=== PATIENT | female | born 1985 | race Caucasian/White ===

== ENCOUNTER → 2016-04-16 | Outpatient (CLI) | payer BC ==
[~2016-04-16] MED LIST: SERT50TA PO
[2016-04-16 11:08] LABS: BASO % 0.3 %; BASO ABS # 0.03 K/uL (0-0.2); COMPLETE YES; EOS % 2.8 %; HEMATOCRIT 43.4 % (37-47); IG% 0.5 %; LYMPH % 23.6 %; LYMPH ABS # 2.62 K/uL (1.2-3.4); MEAN CELL VOLUME 85.9 fL (80-100); MEAN CORPUSCULAR HEMOGLOBIN 29.3 pg (25-34); MEAN CORPUSCULAR HGB CONC 34.1 g/dl (32-36); MEAN PLATELET VOLUME 10.8 fL (7.4-10.4); MONO % 9.2 %; NEUT % 63.6 %; PLATELET COUNT 287 K/uL (130-400); RED BLOOD COUNT 5.05 M/uL (4.2-5.4); WHITE BLOOD COUNT 11.11 K/uL (4.8-10.8)
[2016-04-16 11:41] LABS: ALT/SGPT 22 U/L (12-78); BLOOD UREA NITROGEN 12 mg/dl (7-18); BUN/CREATININE RATIO 14.9 (10-20); CALCIUM 8.5 mg/dl (8.5-10.1); CARBON DIOXIDE 24 mmol/L (21-32); CHLORIDE 110 mmol/L (98-107); CREATININE 0.81 mg/dl (0.60-1.20); GLUCOSE 89 mg/dl (70-99); SODIUM 143 mmol/L (136-145)
[2016-04-16 11:44] LABS: ALKALINE PHOSPHATASE 81 U/L (45-117); AST/SGOT 15 U/L (15-37)
== END | disposition home or self-care (01) ==
LOC: C.LAB1850 10:28
PROVIDERS: ATTEND Obstetrics & Gynecology
DX: E28.2 Polycystic ovarian syndrome (principal)

== ENCOUNTER → 2016-08-01 | Outpatient (CLI) | payer BC ==
[2016-08-01 12:35] LABS: ALT/SGPT 23 U/L (12-78); BLOOD UREA NITROGEN 11 mg/dl (7-18); BUN/CREATININE RATIO 11.9 (10-20); CARBON DIOXIDE 25 mmol/L (21-32); CHLORIDE 106 mmol/L (98-107); CREATININE 0.88 mg/dl (0.60-1.20); GLUCOSE 84 mg/dl (70-99); POTASSIUM 4.2 mmol/L (3.5-5.1); SODIUM 140 mmol/L (136-145)
[2016-08-01 12:46] LABS: ALB/GLOB RATIO 1.1 (0.9-2); ALKALINE PHOSPHATASE 70 U/L (45-117); AST/SGOT 14 U/L (15-37)
[2016-08-01 12:57] LABS: PROLACTIN 9.02 ng/mL
== END | disposition home or self-care (01) ==
LOC: C.LAB1850 11:10
PROVIDERS: ATTEND Obstetrics & Gynecology
DX: Z51.81 Encounter for therapeutic drug level monitoring (principal); Z79.899 Other long term (current) drug therapy; N97.9 Female infertility, unspecified

== ENCOUNTER → 2016-09-18 | Outpatient (CLI) | payer BC ==
--- NOTE | 2016-09-18 10:42 | [facility] Operative Report ---
Operative Report Operative Date Sep 18, 2016. Pre-Operative Diagnosis INFERTILITY Post-Operative Diagnosis INFERTILITY Procedure(s) Performed [facility] Surgeon GARRY Press Operator [employer] Surgeon(s) NONE Estimated Blood Loss NONE Findings NL APPEARING UTERINE CAVITY WITH BILATERAL FILL AND SPILL OF THE TUBES. Fluids NONE Specimens NONE Drains NONE Anesthesia NONE Complication(s) None Disposition HOME Description of Procedure TIME OUT WAS HELD IDENTIFYING CORRECT PATIENT AND PROCEDURE. LMP WAS NOTED TO BE 12 DAYS AGO. PATIENT WAS LAID SUPINE AND FROG-LEGGED. SPECULUM PLACED. CX CLEANED WITH IODINE AND GRASPED WITH TENACULUM. RADIOLOGIST CALLED AND DYE WAS INTRODUCED INTO THE UTERINE CAVITY. THE FINDINGS ARE NOTED ABOVE. WHEN THE PROCEDURE WAS COMPLETED, THE INSTRUMENTS WERE REMOVED FROM THE VAGINA. HEMOSTASIS WAS NOTED. THE PATIENT WAS D/C IN STABLE CONDITION. I attest to the content of the Intraoperative Record and any orders documented therein. Any exceptions are noted below.
--- NOTE | 2016-09-18 11:29 | DIAGNOSTIC IMAGING REPORT ---
HYSTEROSALPINGOGRAM CLINICAL HISTORY: FERTILITY TESTING COMPARISON STUDY: No previous studies for comparison. FINDINGS: 18 seconds of fluoroscopic time was utilized. 3 fluoroscopic spot images were acquired. Both fallopian tubes filled a normal fashion. There is free spillage bilaterally. The uterine cavity has a normal shape. IMPRESSION: Normal study. Free spillage bilaterally. Electronically signed by: Marlon Sutton M.D. 09/18/2016 11:28 AM Dictated Date/Time: 09/18/2016 11:27 AM
== END | disposition home or self-care (01) ==
LOC: C.RAD 09:29
PROVIDERS: ATTEND Obstetrics & Gynecology
DX: Z31.41 Encounter for fertility testing (principal)

== ENCOUNTER → 2016-09-19 | Outpatient (CLI) | payer BC ==
[2016-09-19 12:45] LABS: THYROID STIMULATING HORMONE 2.05 uIu/ml (0.300-4.500)
[2016-09-20 12:25] LABS: MICROSOMAL AB 2 IU/ML (<9)
--- NOTE | 2016-09-29 12:56 | CODING QUERY MEDICAL NECESSITY ---
CQSUPPORTING DIAGNOSIS NEEDED A supporting diagnosis is required for the test/procedure performed on this patient in order for us to be reimbursed by the patient's insurance. Please provide a supporting diagnosis for the following test/procedure listed below next to the test name along with your signature. *If there is no additional diagnosis for this patient that would support the following test/procedure please document that below next to the test/procedure. Test(s)/Procedure(s) that require a supporting diagnosis: DOS 09/19/16 VITAMIN D TEST THYROID TEST Provider Signature: Date: Thank you Ananya Bose Health Information Management Once completed, please kindly fax back to [phone] For questions please call [phone]
== END | disposition home or self-care (01) ==
LOC: C.LAB1850 10:32
PROVIDERS: ATTEND Internal Medicine Endocrinology, Diabetes & Metabolism
DX: N97.9 Female infertility, unspecified (principal); E55.9 Vitamin D deficiency, unspecified; R94.6 Abnormal results of thyroid function studies

== ENCOUNTER → 2016-09-24 | Outpatient (CLI) | payer BC | END | disposition home or self-care (01) | LOC: C.PAPS 11:02 | PROVIDERS: ATTEND Physician Assistant | DX: Z01.419 Encounter for gynecological examination (general) (routine) without abnormal findings (principal) ==

== ENCOUNTER → 2016-11-07 | Outpatient (CLI) | payer BC ==
[2016-11-07 13:57] LABS: THYROID STIMULATING HORMONE 1.39 uIu/ml (0.300-4.500)
== END | disposition home or self-care (01) ==
LOC: C.LAB1850 12:18
PROVIDERS: ATTEND Internal Medicine Endocrinology, Diabetes & Metabolism
DX: E55.9 Vitamin D deficiency, unspecified (principal); N97.9 Female infertility, unspecified

== ENCOUNTER → 2016-11-17 | Outpatient (CLI) | payer BC | END | disposition home or self-care (01) | LOC: C.LAB1850 13:41 | PROVIDERS: ATTEND Obstetrics & Gynecology | DX: Z32.01 Encounter for pregnancy test, result positive (principal) ==

== ENCOUNTER → 2016-11-19 | Outpatient (CLI) | payer BC | END | disposition home or self-care (01) | LOC: C.LAB1850 14:08 | PROVIDERS: ATTEND Obstetrics & Gynecology | DX: O20.0 Threatened abortion (principal) ==

== ENCOUNTER → 2016-12-15 | Outpatient (CLI) | payer BC ==
[2016-12-15 13:15] LABS: URINE APPEARANCE CLEAR (CLEAR); URINE BILIRUBIN NEG (NEG); URINE COLOR YELLOW; URINE NITRITE NEG (NEG); URINE SPECIFIC GRAVITY 1.024 (1.000-1.030); UROBILINOGEN NEG (NEG)
[2016-12-15 13:16] LABS: MANUAL MICROSCOPIC REQUIRED? NO; REVIEW REQ? NO
== END | disposition home or self-care (01) ==
LOC: C.LABSPEC 12:03
PROVIDERS: ATTEND Obstetrics & Gynecology
DX: O99.281 Endocrine, nutritional and metabolic diseases complicating pregnancy, first trimester (principal); Z3A.00 Weeks of gestation of pregnancy not specified

== ENCOUNTER → 2016-12-18 | Outpatient (CLI) | payer BC ==
[2016-12-18 16:38] LABS: BASO % 0.3 %; BASO ABS # 0.05 K/uL (0-0.2); COMPLETE YES; EOS % 1.5 %; HEMATOCRIT 40.5 % (37-47); IG% 0.3 %; LYMPH % 17.3 %; LYMPH ABS # 2.54 K/uL (1.2-3.4); MEAN CELL VOLUME 87.7 fL (80-100); MEAN CORPUSCULAR HEMOGLOBIN 30.3 pg (25-34); MEAN CORPUSCULAR HGB CONC 34.6 g/dl (32-36); MEAN PLATELET VOLUME 11.1 fL (7.4-10.4); MONO % 5.5 %; NEUT % 75.1 %; PLATELET COUNT 263 K/uL (130-400); RED BLOOD COUNT 4.62 M/uL (4.2-5.4); WHITE BLOOD COUNT 14.64 K/uL (4.8-10.8)
== END | disposition home or self-care (01) ==
LOC: C.LAB1850 15:42
PROVIDERS: ATTEND Obstetrics & Gynecology
DX: O99.281 Endocrine, nutritional and metabolic diseases complicating pregnancy, first trimester (principal); Z3A.00 Weeks of gestation of pregnancy not specified

== ENCOUNTER → 2017-02-11 | Outpatient (CLI) | payer BC ==
[2017-02-11 16:59] LABS: GTGD 50 Grams
== END | disposition home or self-care (01) ==
LOC: C.LAB1850 14:05
PROVIDERS: ATTEND Obstetrics & Gynecology
DX: O99.282 Endocrine, nutritional and metabolic diseases complicating pregnancy, second trimester (principal); E03.9 Hypothyroidism, unspecified; Z3A.00 Weeks of gestation of pregnancy not specified

== ENCOUNTER → 2017-05-07 | Outpatient (CLI) | payer OTHER ==
[2017-05-07 12:23] LABS: HEMATOCRIT 38.7 % (37-47); HEMOGLOBIN 12.8 g/dL (12.0-16.0)
== END | disposition home or self-care (01) ==
LOC: C.LAB1850 09:54
PROVIDERS: ATTEND Obstetrics & Gynecology
DX: Z34.03 Encounter for supervision of normal first pregnancy, third trimester (principal); R94.6 Abnormal results of thyroid function studies

== ENCOUNTER → 2017-05-13 | Outpatient (CLI) | payer OTHER | END | disposition home or self-care (01) | LOC: C.LAB1850 07:33 | PROVIDERS: ATTEND Obstetrics & Gynecology | DX: O28.1 Abnormal biochemical finding on antenatal screening of mother (principal); Z3A.00 Weeks of gestation of pregnancy not specified ==

== ENCOUNTER 2017-05-25 12:16 | Outpatient (CLI) | payer OTHER ==
[~2017-05-25] VITALS: Ht 167.6 cm; Wt 85.5 kg
[2017-05-25] MEDS ORDERED: NIFEdipine 10 MG CAP PO STA (12:35)
[2017-05-25] MEDS ORDERED: LACTATED RINGER'S 1000ML 500 ML IV ONE (12:35)
[2017-05-25] MEDS ORDERED: NIFEdipine 10 MG CAP ONE (12:39)
[2017-05-25 13:11] LABS: HEMATOCRIT 36.3 % (37-47); HEMOGLOBIN 12.9 g/dL (12.0-16.0); MEAN CELL VOLUME 91.4 fL (80-100); MEAN CORPUSCULAR HEMOGLOBIN 32.5 pg (25-34); MEAN PLATELET VOLUME 10.8 fL (7.4-10.4); PLATELET COUNT 182 K/uL (130-400); RED CELL DISTRIBUTION WIDTH CV 13.4 % (11.5-14.5); RED CELL DISTRIBUTION WIDTH SD 44.3 fL (36.4-46.3); WHITE BLOOD COUNT 14.55 K/uL (4.8-10.8)
[2017-05-25 13:16] LABS: MEAN CORPUSCULAR HGB CONC 35.5 g/dl (32-36)
[2017-05-25 13:17] LABS: INR 0.9 (0.9-1.1); PTT PATIENT 24.7 SECONDS (21.0-31.0)
[2017-05-25 13:24] LABS: ALBUMIN 2.6 gm/dl (3.4-5.0); ALT/SGPT 27 U/L (12-78); BLOOD UREA NITROGEN 7 mg/dl (7-18); CALCIUM 8.4 mg/dl (8.5-10.1); CARBON DIOXIDE 22 mmol/L (21-32); CREATININE 0.69 mg/dl (0.60-1.20); GLUCOSE 138 mg/dl (70-99); POTASSIUM 3.2 mmol/L (3.5-5.1); SODIUM 137 mmol/L (136-145); URIC ACID 3.2 mg/dl (2.6-7.2)
[2017-05-25 13:27] LABS: ALKALINE PHOSPHATASE 106 U/L (45-117); AST/SGOT 21 U/L (15-37); TOTAL PROTEIN 6.1 gm/dl (6.4-8.2)
[2017-05-25] MEDS ORDERED: ACETAMINOPHEN 325 MG TAB ONE (13:33)
[2017-05-25 14:23] VITALS: Ht 167.6 cm; Wt 85.5 kg
[2017-05-25] MEDS ORDERED: MAGNESIUM SULFATE / WTR 1,000 ML IV SCH (14:26)
[2017-05-25] MEDS ORDERED: LEVO50TA6 PO (14:27)
[2017-05-25] MEDS ORDERED: PRENTAB26 PO (14:27)
[2017-05-25] MEDS ORDERED: LEVO100T7 PO (14:27)
[2017-05-25] MEDS ORDERED: RANI150T85 PO (14:27)
[2017-05-25] MEDS ORDERED: MAGNESIUM SULFATE 4GM / WTR 4 GM BAG ONE (14:30)
[2017-05-25] MEDS ORDERED: MAGNESIUM SULFATE 40GM/ WTR 1,000 ML BAG ONE (14:30)
[2017-05-25] MEDS ORDERED: BETAMETH SOD PHOS/ACETATE IA 6 MG/ML IM ONE (14:30)
[2017-05-25] MEDS ORDERED: BETAMETH SOD PHOS/ACETATE IA 6 MG/ML ONE (14:31)
== END 2017-05-25 15:35 | disposition short-term general hospital (02) ==
LOC: C.LD 12:16 → C.OPB 12:16
PROVIDERS: ATTEND Obstetrics & Gynecology
DX: O99.89 Other specified diseases and conditions complicating pregnancy, childbirth and the puerperium (principal); R03.0 Elevated blood-pressure reading, without diagnosis of hypertension; R51 Headache; H53.9 Unspecified visual disturbance; Z3A.30 30 weeks gestation of pregnancy

== ENCOUNTER 2019-11-23 05:29 | Inpatient (IN) ==
[2019-11-23] MEDS ORDERED: OXYTOCIN 30 UNITS/500 ML BAG IV PRN ×3 (06:41→08:47)
--- NOTE | 2019-11-23 06:49 | Labor Progress Brief Note ---
Date of Service November 23, 2019 Subjective Patient arrives from home with LOF at 0200, clear, followed by onset of contractions Q5min. +FM, no VB. Patient [place] 34wk [place] [facility] [place] . Assessment & Plan (1) Diet controlled gestational diabetes mellitus (GDM), antepartum: Check FSBG x1 and then prn; was diet controlled. (2) Previous delivery affecting , antepartum: In Labor now, desires TOLAC. R/b/a discussed, including augmentation with pitocin, and patient reaffirms consent. Physical Exam Constitutional: WD/WN, vitals as above + in distress Eyes: PERRL, conjunctivae normal, anicteric sclerae ENMT: external ear and nose normal, oropharynx normal Neck: supple Respiratory: normal respiratory effort and able to speak in complete sentences; no respiratory distress Cardiovascular: Rate/Rhythm: regular rate and regular rhythm Gastrointestinal (Abdomen): Gravid / AGA, nontender Musculoskeletal: no cyanosis or clubbing, extremities motor strength 5/5 Skin: no rashes, warm and dry Neurologic: patellar DTR's 2+ bilat, sensation intact Psychiatric: A+Ox3, euthymic affect Genitourinary: Speculum/Bimanual Exam: no vaginal lesions, no vaginal bleeding and uterus nontender OB Exam Abdomen: + vertex and + estimated weight (7) Manual OB Exam: + cervical dilation 1 cm, + cervical effacement 80%, + station -2 and + amniotic fluid (+amnisure) clear OB Exam Monitor Tracing: + external FHT monitor used, + external uterine monitor used and + category I Lymphatic: no cervical or axillary lymphadenopathy Results & Data ([facility]) Vital Signs (Past 12 Hours) Vital Signs Temp Pulse Resp BP 11/23/19 06:23 78 130/85 11/23/19 05:48 97.9 F 83 18 132/93 11/23/19 05:38 83 132/93 Coding Level of Care Code None Diagnoses Diet controlled gestational diabetes mellitus (GDM), antepartum O24.410 Previous delivery affecting , antepartum O34.219
[2019-11-23 07:06] LABS: Hematocrit (blood only) 37.6 % (37-47); Hemoglobin 12.3 g/dL (12.0-16.0); Mean Corpuscular Hemoglobin 28.3 pg (25-34); Mean Corpuscular Hgb Conc 32.7 g/dL (32-36); Mean Corpuscular Volume 86.4 fL (80-100); Mean Platelet Volume 11.4 fL (7.4-10.4); Platelet Count 182 K/uL (130-400); RDW Coefficient of Variation 15.1 % (11.5-14.5); RDW Standard Deviation 46.6 fL (36.4-46.3); Red Blood Count 4.35 M/uL (4.2-5.4); White Blood Count 15.16 K/uL (4.8-10.8)
[2019-11-23] MEDS: LACTATED RINGER'S 1,000 ML IV PRN ×3 (07:32→19:24)
[2019-11-23] MEDS ORDERED: BUPIVACAINE 0.25% 30 ML VIAL ONE (09:21)
[2019-11-23] MEDS ORDERED: ePHEDrine sulfate 50 MG/ML AMP ONE (09:21)
[2019-11-23] MEDS ORDERED: fentaNYL citrate 100 MCG/2 ML VIAL ONE (09:21)
[2019-11-23] MEDS ORDERED: fentaNYL 2MCG/ML ROPIV 1.25MG/ML 100 ML BAG EPI ONE (09:22)
--- NOTE | 2019-11-23 10:03 | Anesthesiology Consultation ---
Date of Service November 23, 2019 Assessment & Plan (1) Encounter for pre-operative examination: Chart Review Chart Review: Patient NOT seen in Pre Admission Testing and Acceptable Risk for Labor Epidural Consults Requested none ASA ASA3 Proposed Anesthesia Anesthesia Type: Labor Epidural Risk / Benefits Reviewed With: PT / POA / Parent / Guardian, Accepts Plan and Informed Consent Obtained History Height/Weight Height: 5 ft 4 in Weight: 96.615 kg Allergies Allergy/AdvReac Type Severity Reaction Status Date / Time No Known Drug Allergies Allergy Unknown Verified 11/23/19 05:45 Medications Home Medications Medication Instructions Recorded Confirmed Last Taken prenat.vits,kaylie,xwp-vkyi-kabqh 1 tab PO QAM 11/30/18 11/23/19 11/22/19 22:00 aspirin 81 mg tablet,delayed 81 mg PO QAM 01/17/19 11/23/19 11/22/19 08:00 release acetone (urine) test #50 ea 06/23/19 11/21/19 Unknown blood sugar diagnostic #150 ea 06/23/19 11/21/19 Unknown blood-glucose meter #1 ea 06/23/19 11/21/19 Unknown lancets #102 ea 06/23/19 11/21/19 Unknown levothyroxine 75 mcg tablet 75 mcg PO DAILY #30 tab 07/05/19 11/23/19 11/22/19 08:00 pnv #[id number] [-DHA] 1 ea PO DAILY 11/16/19 11/23/19 11/22/19 22:00 Active Medications Generic Name Dose Route Start Last Admin Trade Name Freq PRN Reason Stop Dose Admin Lactated Ringer's 1,000 mls @ 125 mls/hr 11/23/19 06:41 11/23/19 08:02 Lr IV 11/25/19 06:40 125 mls/hr .Q8H PRN Infusion L&D Protocol Protocol Oxytocin 30 units in 500 mls @ 2 mls/hr 11/23/19 08:47 11/23/19 09:17 Pitocin IV 11/25/19 08:46 0.24 units/hr .Q24H PRN 4 mls/hr Labor Induction/Augmentation Administration Protocol 0.12 UNITS/HR NPO Date Last Intake of Fluids: 11/23/19 Time Last Intake of Fluids: 10:00 Date Last Intake of Solids: 11/23/19 Time Last Intake of Solids: 04:30 Past Medical History Medical History Anxiety and depression Arthritis LOWER SPINE WITH BONE SPURS Gestational diabetes Heartburn DURING CURRENT Heterozygous MTHFR mutation [id number] Hx of female infertility Iron deficiency anemia HX OF Migraine FOLLOWS WITH NEUROLOGY PCOS (polycystic ovarian syndrome) depression Tachycardia IN THE PAST NOTED (DOES NOT FOLLOW WITH CARDS) Temporomandibular joint disorder Exercise / Class Metabolic Activity II 4-5 Yardwork/Stairs/Walk up hill Past Family History Family History Father Dyslipidemia Grandmother (Paternal) Ovarian cancer Mother History of PCOS Sister History of PCOS Uncle Pectus excavatum Past Surgical History Surgical History H/O cosmetic surgery SCAR REVISION History of esophagogastroduodenoscopy (EGD) Hx of bilateral breast reduction surgery S/P section X 1 [place] teeth removed Past Anesthesia History No Hx of Anesthesia Complications and No Family Hx of Anesthesia Complications History of PONV No Hx of PONV Social History Smoking Status: Never smoker Hx Alcohol Use: No Hx Substance Use: No substance use type: does not use Review of Systems Patient denies history of abnormal bleeding or bleeding disorder. Patient denies active use of anticoagulants other than low dose aspirin. Patient denies numbness, tingling or weakness in lower extremities. Physical Exam Vital Signs Last Vital Signs Temp 36.8 C 11/23/19 07:03 Pulse 103 H 11/23/19 09:06 Resp 18 11/23/19 07:03 BP 151/95 H 11/23/19 09:06 Constitutional not obese (gravid uterus) ENMT Mouth: + TMJ abnormality; oral opening not small Thyromental Distance: > or= 3.5 Finger Breadths Mallampati Class: III Neck normal visual inspection; neck extension not limited Respiratory normal respiratory effort Auscultation: lungs clear to auscultation bilaterally Cardiovascular Rate/Rhythm: regular rate and regular rhythm Heart Sounds: no murmur Neurologic moves all extremities Motor/Sensory: no sensory deficit Psychiatric Orientation: alert and oriented x 3 Testing Laboratory Results 11/23/19 06:57
[2019-11-23] MEDS ORDERED: ePHEDrine sulfate 50 MG/ML AMP IV PRN (10:47)
[2019-11-23] MEDS ORDERED: NALOXONE HCL 1 MG in SODIUM CHLORIDE 0.9% 1000ML 1,000 ML IV PRN (10:47)
[2019-11-23] MEDS ORDERED: fentaNYL 2MCG/ML ROPIV 1.25MG/ML 100 ML BAG EPI PRN (10:47)
[2019-11-23] MEDS ORDERED: ONDANSETRON INJ 2 MG/ML 2 ML VIAL IV PRN (10:47)
[2019-11-23] MEDS ORDERED: NALOXONE HCL 0.4 MG/1 ML VIAL/CARP IV PRN (10:47)
[2019-11-23] MEDS ORDERED: DiphenhydrAMINE HCL 50 MG/ML VIAL IV PRN (10:47)
[2019-11-23] MEDS ORDERED: CALCIUM CARBONATE 500 MG CHEWABLE TAB PO PRN ×2 (12:57→19:12)
--- NOTE | 2019-11-23 13:40 | Labor Progress Brief Note ---
Date of Service November 23, 2019 Subjective Reason For Note: Routine Evaluation Assessment & Plan (1) Diet controlled gestational diabetes mellitus (GDM), antepartum: Check FSBG x1 and then prn; was diet controlled. (2) Previous delivery affecting , antepartum: In Labor now, desires TOLAC. R/b/a discussed, including augmentation with pitocin, and patient reaffirms consent. Progressing well. Epidural in place Admission and Anticipated Discharge Date Admission Date: November 23, 2019 Physical Exam Genitourinary: OB Exam Abdomen: + vertex Manual OB Exam: + cervical dilation 3 cm, + cervical effacement 80%, + station -2 and + amniotic fluid clear OB Exam Monitor Tracing: + external FHT monitor used, + external uterine monitor used, + category I and + normal FHT variability; no late decelerations present and no variable decelerations Results & Data ([facility]) Vital Signs (Past 12 Hours) Vital Signs Temp Pulse Resp BP Pulse Ox 11/23/19 13:34 111 H 96 11/23/19 13:29 117 H 95 11/23/19 13:24 129 H 121/69 96 11/23/19 13:19 128 H 95 11/23/19 13:14 135 H 97 11/23/19 13:10 122 H 111/65 11/23/19 13:09 118 H 96 11/23/19 13:04 133 H 96 11/23/19 13:00 103 H 94 11/23/19 12:59 144 H 96 11/23/19 12:55 111 H 94 11/23/19 12:54 98 H 92 11/23/19 12:53 117 H 106/66 11/23/19 12:50 100 H 94 11/23/19 12:49 105 H 95 11/23/19 12:44 124 H 95 11/23/19 12:39 127 H 95 11/23/19 12:38 120 H 108/68 11/23/19 12:34 102 H 94 11/23/19 12:29 106 H 96 11/23/19 12:24 108 H 112/74 97 11/23/19 12:19 115 H 97 11/23/19 12:14 111 H 96 11/23/19 12:10 102 H 121/79 11/23/19 12:09 111 H 96 11/23/19 12:04 96 H 97 11/23/19 11:59 120 H 96 11/23/19 11:55 119 H 91 11/23/19 11:54 123 H 95 11/23/19 11:53 113 H 123/80 11/23/19 11:49 102 H 95 11/23/19 11:45 97 H 93 11/23/19 11:44 95 H 94 11/23/19 11:40 96 H 18 121/78 11/23/19 11:39 88 95 11/23/19 11:34 108 H 16 96 11/23/19 11:31 104 H 94 11/23/19 11:29 100 H 96 11/23/19 11:26 113 H 94 11/23/19 11:24 107 H 95 11/23/19 11:23 97 H 124/83 11/23/19 11:19 93 H 18 96 11/23/19 11:14 96 H 95 11/23/19 11:09 91 H 97 11/23/19 11:05 113 H 20 136/91 11/23/19 11:04 105 H 95 11/23/19 10:59 111 H 135/82 97 11/23/19 10:56 110 H 93 11/23/19 10:54 119 H 127/70 96 11/23/19 10:50 102 H 18 94 11/23/19 10:49 117 H 96 11/23/19 10:47 103 H 130/76 11/23/19 10:46 108 H 18 138/85 11/23/19 10:44 121 H 96 11/23/19 10:43 130 H 130/62 11/23/19 10:41 115 H 18 11/23/19 10:39 128 H 115/64 97 11/23/19 10:37 123 H 128/77 11/23/19 10:35 136 H 136/74 11/23/19 10:34 128 H 130/68 96 11/23/19 10:31 126 H 129/76 11/23/19 10:29 137 H 125/80 97 11/23/19 10:27 120 H 139/87 11/23/19 10:25 88 138/92 11/23/19 10:24 116 H 97 11/23/19 10:20 121 H 135/84 11/23/19 10:19 113 H 96 11/23/19 10:14 100 H 132/94 98 11/23/19 10:09 88 96 11/23/19 09:06 103 H 151/95 H 11/23/19 08:50 98 H 145/93 H 11/23/19 07:50 116 H 134/91 11/23/19 07:35 100 H 135/87 11/23/19 07:33 93 H 139/90 11/23/19 07:20 109 H 144/94 H 11/23/19 07:03 36.8 C 111 H 18 163/99 H 11/23/19 06:23 78 130/85 11/23/19 05:48 36.6 C 83 18 132/93 11/23/19 05:38 36.6 C 83 18 132/93 Coding Level of Care Code None Diagnoses Diet controlled gestational diabetes mellitus (GDM), antepartum O24.410 Previous delivery affecting , antepartum O34.219
--- NOTE | 2019-11-23 19:53 | Labor Progress Brief Note ---
Date of Service November 23, 2019 Subjective Reason For Note: Routine Evaluation Assessment & Plan (1) Diet controlled gestational diabetes mellitus (GDM), antepartum: Check FSBG x1 and then prn; was diet controlled. (2) Previous delivery affecting , antepartum: In Labor now, desires TOLAC. R/b/a discussed, including augmentation with pitocin, and patient reaffirms consent. Progressing well. Epidural in place. Reporting chest pain: EKG with sinus tach. Possible left vent enlargement which is unchanged from prior EKG. Official read pending. Patient given Tums and will continue to monitor Admission and Anticipated Discharge Date Admission Date: November 23, 2019 Physical Exam Genitourinary: Manual OB Exam: + cervical dilation (9.5), + cervical effacement 100%, + station + 1 and + amniotic fluid clear OB Exam Monitor Tracing: + external FHT monitor used, + external uterine monitor used, + category I and + normal FHT variability; no early decelerations present, no late decelerations present and no variable decelerations [facility]) Vital Signs (Past 12 Hours) Vital Signs Temp Pulse Resp BP Pulse Ox 11/23/19 19:44 101 H 98 11/23/19 19:39 121 H 98 11/23/19 19:38 125 H 169/94 H 11/23/19 19:34 132 H 98 11/23/19 19:29 134 H 97 11/23/19 19:24 95 H 97 11/23/19 19:19 118 H 97 11/23/19 19:14 116 H 98 11/23/19 19:09 93 H 143/93 H 98 11/23/19 19:04 103 H 97 11/23/19 18:59 99 H 98 11/23/19 18:55 98 H 111/76 11/23/19 18:54 96 H 98 11/23/19 18:49 94 H 97 11/23/19 18:44 94 H 97 11/23/19 18:39 97 H 123/75 97 11/23/19 18:34 106 H 98 11/23/19 18:29 97 H 97 11/23/19 18:24 109 H 114/73 97 11/23/19 18:19 107 H 96 11/23/19 18:14 92 H 96 11/23/19 18:09 93 H 16 113/71 96 11/23/19 18:04 100 H 96 11/23/19 17:59 94 H 95 11/23/19 17:54 82 97 11/23/19 17:53 129 H 117/71 11/23/19 17:49 92 H 95 11/23/19 17:44 111 H 96 11/23/19 17:39 95 H 114/66 95 11/23/19 17:34 99 H 95 11/23/19 17:29 104 H 95 11/23/19 17:24 91 H 110/70 97 11/23/19 17:19 95 H 96 11/23/19 17:14 104 H 96 11/23/19 17:09 114 H 96 11/23/19 17:08 101 H 114/74 11/23/19 17:07 36.8 C 107 H 18 118/75 96 11/23/19 17:04 101 H 97 11/23/19 16:59 85 97 11/23/19 16:54 110 H 95 11/23/19 16:53 95 H 121/78 11/23/19 16:49 100 H 95 11/23/19 16:44 108 H 98 11/23/19 16:39 99 H 122/81 96 11/23/19 16:34 82 95 11/23/19 16:29 101 H 95 11/23/19 16:24 96 H 121/75 96 11/23/19 16:19 121 H 96 11/23/19 16:14 81 96 11/23/19 16:09 92 H 96 11/23/19 16:08 120 H 18 120/76 11/23/19 16:04 107 H 96 11/23/19 15:59 111 H 96 11/23/19 15:55 130 H 120/72 11/23/19 15:54 118 H 97 11/23/19 15:49 98 H 96 11/23/19 15:44 107 H 94 11/23/19 15:39 107 H 127/78 95 11/23/19 15:34 101 H 94 11/23/19 15:29 85 96 11/23/19 15:24 76 126/79 96 11/23/19 15:19 105 H 94 11/23/19 15:14 113 H 96 11/23/19 15:09 117 H 96 11/23/19 15:08 96 H 16 129/86 11/23/19 15:04 83 97 11/23/19 14:59 96 H 96 11/23/19 14:54 122 H 94 11/23/19 14:53 80 122/81 11/23/19 14:49 98 H 92 11/23/19 14:44 103 H 96 11/23/19 14:39 94 H 95 11/23/19 14:38 37.0 C 109 H 16 116/78 96 11/23/19 14:35 83 94 11/23/19 14:34 104 H 94 11/23/19 14:30 116 H 94 11/23/19 14:29 105 H 95 11/23/19 14:24 112 H 121/81 95 11/23/19 14:23 89 94 11/23/19 14:19 105 H 96 11/23/19 14:14 116 H 95 11/23/19 14:09 92 H 123/76 96 11/23/19 14:04 118 H 96 11/23/19 13:59 133 H 97 11/23/19 13:54 131 H 96 11/23/19 13:53 116 H 108/61 11/23/19 13:49 138 H 97 11/23/19 13:44 112 H 95 11/23/19 13:39 109 H 16 96 11/23/19 13:38 118 H 114/67 11/23/19 13:34 111 H 96 11/23/19 13:29 117 H 95 11/23/19 13:24 129 H 121/69 96 11/23/19 13:19 128 H 95 11/23/19 13:14 135 H 97 11/23/19 13:10 122 H 111/65 11/23/19 13:09 118 H 96 11/23/19 13:04 133 H 96 11/23/19 13:00 103 H 94 11/23/19 12:59 144 H 96 11/23/19 12:55 111 H 94 11/23/19 12:54 98 H 92 11/23/19 12:53 117 H 106/66 11/23/19 12:50 100 H 94 11/23/19 12:49 105 H 95 11/23/19 12:44 124 H 95 11/23/19 12:39 127 H 18 95 11/23/19 12:38 120 H 108/68 11/23/19 12:34 102 H 94 11/23/19 12:29 106 H 96 11/23/19 12:24 108 H 112/74 97 11/23/19 12:19 115 H 97 11/23/19 12:14 111 H 96 11/23/19 12:10 102 H 121/79 11/23/19 12:09 111 H 96 11/23/19 12:04 96 H 97 11/23/19 11:59 120 H 96 11/23/19 11:55 119 H 91 11/23/19 11:54 123 H 95 11/23/19 11:53 113 H 123/80 11/23/19 11:49 102 H 95 11/23/19 11:45 97 H 93 11/23/19 11:44 95 H 94 11/23/19 11:40 36.9 C 96 H 18 121/78 95 11/23/19 11:39 88 95 11/23/19 11:34 108 H 16 96 11/23/19 11:31 104 H 94 11/23/19 11:29 100 H 96 11/23/19 11:26 113 H 94 11/23/19 11:24 107 H 95 11/23/19 11:23 97 H 124/83 11/23/19 11:19 93 H 18 96 11/23/19 11:14 96 H 95 11/23/19 11:09 91 H 97 11/23/19 11:05 113 H 20 136/91 11/23/19 11:04 105 H 95 11/23/19 10:59 111 H 135/82 97 11/23/19 10:56 110 H 93 11/23/19 10:54 119 H 127/70 96 11/23/19 10:50 102 H 18 94 11/23/19 10:49 117 H 96 11/23/19 10:47 103 H 130/76 11/23/19 10:46 108 H 18 138/85 11/23/19 10:44 121 H 96 11/23/19 10:43 130 H 130/62 11/23/19 10:41 115 H 18 11/23/19 10:39 128 H 115/64 97 11/23/19 10:37 123 H 128/77 11/23/19 10:35 136 H 136/74 11/23/19 10:34 128 H 130/68 96 11/23/19 10:31 126 H 129/76 11/23/19 10:29 137 H 125/80 97 11/23/19 10:27 120 H 139/87 11/23/19 10:25 88 138/92 11/23/19 10:24 116 H 97 11/23/19 10:20 121 H 135/84 11/23/19 10:19 113 H 96 11/23/19 10:14 100 H 132/94 98 11/23/19 10:09 88 96 11/23/19 09:06 36.9 C 103 H 20 151/95 H 11/23/19 08:50 98 H 145/93 H 11/23/19 07:50 116 H 134/91 Coding Level of Care Code None Diagnoses Diet controlled gestational diabetes mellitus (GDM), antepartum O24.410 Previous delivery affecting , antepartum O34.219
[2019-11-23] MEDS ORDERED: CEFAZOLIN 2000MG 2,000 MG/15 ML SYR IV ONE (22:45)
[2019-11-23] MEDS ORDERED: METHYLERGONOVINE MALEATE 0.2 MG/ML AMP ONE (22:58)
[2019-11-23 23:04] LABS: Base Excess Cord Arterial Bld -18.3 mEq/L (-9-1.8); Base Excess Cord Venous Blood -15.9 mEq/L (-7.7-1.9); CO2 Cord Arterial Blood 101 mmHg (39.1-73.5); Cord Venous Blood HCO3 22 mmol/L (18.4-26.8); Cord Venous Blood PCO2 131 mmHg (30.4-57.2); Cord Venous Blood pH 6.84 (7.20-7.44); HCO3 Cord Arterial Blood 18 mmol/L (19.7-28.5); PO2 Cord Arterial Blood 30 mmHg (4.1-31.7); pH Cord Arterial Blood 6.86 (7.1-7.38)
[2019-11-23 23:05] LABS: Oxygen Sat Cord Arterial Blood < 60.0 % (<60)
[2019-11-23 23:06] LABS: O2 Saturation Cord Venous Bld < 60.0 % (<68)
[2019-11-23] MEDS ORDERED: METHYLERGONOVINE MALEATE 0.2 MG/ML AMP IM STA (23:06)
[2019-11-23 23:07] LABS: Cord Venous Blood PO2 < 10 mmHg (14.1-43.3)
[2019-11-23] MEDS ORDERED: ALBUMIN 5% 250 ML IV ONE ×2 (23:15)
[2019-11-23] MEDS ORDERED: SODIUM CHLORIDE 0.9% 250 ML IV PRN (23:25)
[2019-11-23 23:27] LABS: Hematocrit (blood only) 30.7 % (37-47); Mean Corpuscular Hemoglobin 28.3 pg (25-34); Mean Corpuscular Hgb Conc 32.6 g/dL (32-36); Mean Platelet Volume 11.5 fL (7.4-10.4); Platelet Count 182 K/uL (130-400); RDW Coefficient of Variation 15.5 % (11.5-14.5); RDW Standard Deviation 48.1 fL (36.4-46.3); Red Blood Count 3.53 M/uL (4.2-5.4)
[2019-11-23 23:36] LABS: Partial Thromboplastin Ratio 0.9; Partial Thromboplastin Time 24.8 Seconds (21.0-31.0); Prothrombin Time 10.6 Seconds (9.0-12.0)
[2019-11-23 23:47] LABS: Basophils # (auto) 0.03 K/uL (0-0.2); Basophils % (auto) 0.1 %; Eosinophils # (auto) 0.01 K/uL (0-0.5); Immature Granulocytes # (auto) 0.14 K/uL (0.00-0.02); Immature Granulocytes % (auto) 0.6 %; Lymphocytes # (auto) 1.14 K/uL (1.2-3.4); Lymphocytes % (auto) 4.8 %; Monocytes # (auto) 1.04 K/uL (0.11-0.59); Monocytes % (auto) 4.4 %; Neutrophils # (auto) 21.24 K/uL (1.4-6.5); Neutrophils % (auto) 90.1 %
[2019-11-24] MEDS ORDERED: ONDANSETRON INJ 2 MG/ML 2 ML VIAL ONE (00:20)
[2019-11-24] MEDS ORDERED: PHENYLEPHRINE 100MCG/ML 5ML SYR ONE (00:21)
[2019-11-24] MEDS ORDERED: PHENYLEPHRINE HCL 10 MG/ML VIAL ONE (00:21)
[2019-11-24] MEDS ORDERED: LIDOCAINE/EPINEPHRINE 2% 1:200,000 20 ML SDV ONE (00:29)
[2019-11-24] MEDS ORDERED: MoRPHine SULFATE PF 1 MG/ML 10 ML AMP/VIAL ONE (00:29)
[2019-11-24] MEDS ORDERED: SODIUM CHLORIDE 0.9% 250 ML IV PRN (00:34)
[2019-11-24 01:14] LABS: Fibrinogen 434 mg/dl (184-400)
[2019-11-24] MEDS ORDERED: ONDANSETRON INJ 2 MG/ML 2 ML VIAL IV PRN ×2 (01:34→19:37)
[2019-11-24] MEDS ORDERED: NALOXONE HCL 1 MG in SODIUM CHLORIDE 0.9% 1000ML 1,000 ML IV PRN (01:34)
[2019-11-24] MEDS ORDERED: DiphenhydrAMINE HCL 50 MG/ML VIAL IV PRN ×2 (01:34→19:37)
[2019-11-24] MEDS ORDERED: NALOXONE HCL 0.08 MG in SYRINGE 1.8 ML IV PRN (01:34)
[2019-11-24] MEDS ORDERED: MoRPHine SULFATE PF 1 MG/ML 10 ML AMP/VIAL EPI ONE (01:34)
[2019-11-24] MEDS ORDERED: LACTATED RINGER'S 500 ML IV PRN (01:34)
[2019-11-24] MEDS ORDERED: NALOXONE HCL 0.4 MG/1 ML VIAL/CARP IV PRN (01:34)
[2019-11-24] MEDS ORDERED: ePHEDrine sulfate 50 MG/ML AMP IV PRN (01:34)
[2019-11-24] MEDS ORDERED: NO NARCOTICS OR SEDATIVES SCH (01:45)
[2019-11-24] MEDS ORDERED: DC INTRASPINAL MORPHINE SCH (01:45)
[2019-11-24] MEDS ORDERED: SODIUM CHLORIDE 0.9% 1000ML 1,000 ML IV SCH (01:45)
[2019-11-24] MEDS ORDERED: ACETAMINOPHEN 1000 MG/100 ML IV IV PRN (01:49)
[2019-11-24] MEDS ORDERED: fentaNYL citrate 100 MCG/2 ML VIAL ONE (02:19)
--- NOTE | 2019-11-24 02:42 | Anesthesia Procedure Note ---
Date of Service November 24, 2019 Anesthesia Post Epidural Note Vital Signs Vital Signs: Temp Pulse Resp BP Pulse Ox 36.3 C L 136 H 18 143/82 H 96 11/23/19 20:59 11/24/19 02:36 11/23/19 20:59 11/24/19 02:34 11/24/19 02:36 Pain Intensity Lower Medial Abdomen: Pain Intensity: 0 Left Chest: Pain Intensity: 6 Notes Mental Status: alert / awake / arousable and participated in evaluation Nausea / Vomiting: adequately controlled Pain: adequately controlled Airway Patency, RR, SpO2: stable & adequate BP & HR: stable & adequate Hydration State: stable & adequate Neuraxial Anesthesia: was administered and sensory block is resolving Anesthetic Complications: no major complications apparent and Pt Satisfied with anesthetic care Epidural: Removed without complications and With tip intact
--- NOTE | 2019-11-24 02:43 | Post Operative Brief Note ---
PG Immediate Post Op with CF Date of Surgery November 24, 2019 Pre & Post Diagnosis Operation Date: 11/24/19 00:10 Pre-Op Diagnosis: 1. Uterine rupture Post-Op Diagnosis: 1. Uterine rupture I identified the patient and participated in the time-out.: Yes Procedure Operation Date: 11/24/19 00:10 Actual Procedures p Exploratory Laparotomy(Bilateral) - Hema Mancia MD Surgeon Hema Mancia MD Continuous Vulcanizing Machine Operator Dr Almonte Estimated Blood Loss 1,800 Findings Consistent with Post-Op Diagnosis Drains Gottlieb Catheter
[2019-11-24] MEDS ORDERED: BENZOCAINE 20% AER SPR 82.5 GM CAN EXT PRN (02:44)
[2019-11-24] MEDS ORDERED: DIPHTHERIA/TETANUS/PERTUSSIS 0.5 ML SYR/VIAL IM ONE (02:44)
[2019-11-24] MEDS ORDERED: MAGNESIUM HYDROXIDE SUSP 30 ML UDC PO PRN (02:44)
[2019-11-24] MEDS ORDERED: SUPERCREAM 0.870% 15 GM JAR EXT PRN (02:44)
[2019-11-24] MEDS ORDERED: HYDROCORTISONE ACETATE 25 MG SUPP PR PRN (02:44)
--- NOTE | 2019-11-24 02:51 | Anesthesiology Progress Note ---
Date of Service November 24, 2019 Anesthesia Post Procedure Vital Signs Vital Signs: Temp Pulse Resp BP Pulse Ox 11/24/19 02:46 119 H 95 11/24/19 02:44 117 H 141/84 H 11/24/19 02:41 120 H 96 11/24/19 02:36 136 H 96 11/24/19 02:34 125 H 143/82 H 11/24/19 02:32 106 H 92 11/24/19 02:31 121 H 98 11/24/19 02:26 109 H 95 11/24/19 02:24 116 H 129/82 11/23/19 23:52 123 H 109/71 11/23/19 23:49 128 H 98 11/23/19 23:48 136 H 120/68 11/23/19 23:44 128 H 114/67 97 11/23/19 23:39 123 H 99 11/23/19 23:38 130 H 118/67 11/23/19 23:34 126 H 115/66 98 11/23/19 23:29 134 H 97 11/23/19 23:24 130 H 120/76 98 11/23/19 23:19 140 H 96 11/23/19 23:14 120 H 98 11/23/19 23:09 122 H 97 11/23/19 23:08 129 H 80/49 L 11/23/19 23:07 118 H 81/46 L 11/23/19 23:04 119 H 96 11/23/19 23:03 127 H 79/44 L 11/23/19 23:00 114 H 79/40 L 11/23/19 22:59 117 H 95 11/23/19 22:54 135 H 87/52 L 96 11/23/19 22:53 129 H 83/47 L 11/23/19 22:49 124 H 96 11/23/19 22:44 110 H 96 11/23/19 22:39 128 H 97 11/23/19 22:38 126 H 88/54 L 11/23/19 22:34 129 H 96 11/23/19 22:29 137 H 94 11/23/19 22:24 153 H 94/56 L 97 11/23/19 22:19 167 H 96 11/23/19 22:14 144 H 86 L 11/23/19 22:09 167 H 99 11/23/19 22:04 179 H 99 11/23/19 21:59 133 H 100 11/23/19 21:55 136 H 123/83 11/23/19 21:54 117 H 97 11/23/19 21:49 149 H 97 11/23/19 21:44 112 H 96 11/23/19 21:39 111 H 143/93 H 95 11/23/19 21:34 160 H 97 11/23/19 21:31 114 H 84 L 11/23/19 21:29 107 H 96 11/23/19 21:24 150 H 100 11/23/19 21:23 102 H 141/93 H 11/23/19 21:22 116 H 87 L 11/23/19 21:19 97 H 96 11/23/19 21:16 112 H 84 L 11/23/19 21:14 96 H 98 11/23/19 21:09 116 H 132/91 98 11/23/19 21:04 102 H 98 11/23/19 20:59 36.3 C L 102 H 18 98 11/23/19 20:54 101 H 100 11/23/19 20:53 114 H 129/85 11/23/19 20:49 99 H 98 11/23/19 20:44 103 H 99 11/23/19 20:39 136 H 136/75 97 11/23/19 20:34 113 H 98 11/23/19 20:29 106 H 98 11/23/19 20:24 105 H 126/73 98 11/23/19 20:19 111 H 97 11/23/19 20:14 107 H 98 11/23/19 20:09 111 H 128/73 97 11/23/19 20:04 118 H 97 11/23/19 19:59 101 H 97 11/23/19 19:54 98 H 124/88 98 11/23/19 19:49 101 H 97 11/23/19 19:44 101 H 98 11/23/19 19:39 121 H 98 11/23/19 19:38 125 H 169/94 H 11/23/19 19:34 132 H 98 11/23/19 19:29 134 H 97 11/23/19 19:24 95 H 97 11/23/19 19:19 118 H 97 11/23/19 19:14 116 H 98 09/23/20 19:09 93 H 143/93 H 98 20 19:04 103 H 97 20 18:59 99 H 98 20 18:55 98 H 111/76 20 18:54 96 H 98 20 18:49 94 H 97 20 18:44 94 H 97 20 18:39 97 H 123/75 97 20 18:34 106 H 98 20 18:29 97 H 97 20 18:24 109 H 114/73 97 20 18:19 107 H 96 20 18:14 92 H 96 11/23/19 18:09 93 H 16 113/71 96 11/23/19 18:04 100 H 96 11/23/19 17:59 94 H 95 11/23/19 17:54 82 97 11/23/19 17:53 129 H 117/71 11/23/19 17:49 92 H 95 11/23/19 17:44 111 H 96 11/23/19 17:39 95 H 114/66 95 20 17:34 99 H 95 20 17:29 104 H 95 20 17:24 91 H 110/70 97 11/23/19 17:19 95 H 96 11/23/19 17:14 104 H 96 11/23/19 17:09 114 H 96 11/23/19 17:08 101 H 114/74 11/23/19 17:07 36.8 C 107 H 18 118/75 96 11/23/19 17:04 101 H 97 20 16:59 85 97 20 16:54 110 H 95 20 16:53 95 H 121/78 20 16:49 100 H 95 11/22/20 16:44 108 H 98 20 16:39 99 H 122/81 96 11/22/20 16:34 82 95 11/22/20 16:29 101 H 95 20 16:24 96 H 121/75 96 11/22/20 16:19 121 H 96 20 16:14 81 96 20 16:09 92 H 96 11/23/19 16:08 120 H 18 120/76 11/23/19 16:04 107 H 96 11/23/19 15:59 111 H 96 11/23/19 15:55 130 H 120/72 11/23/19 15:54 118 H 97 11/23/19 15:49 98 H 96 11/23/19 15:44 107 H 94 11/23/19 15:39 107 H 127/78 95 11/23/19 15:34 101 H 94 11/23/19 15:29 85 96 11/23/19 15:24 76 126/79 96 11/23/19 15:19 105 H 94 11/23/19 15:14 113 H 96 11/23/19 15:09 117 H 96 11/23/19 15:08 96 H 16 129/86 11/23/19 15:04 83 97 11/23/19 14:59 96 H 96 11/23/19 14:54 122 H 94 11/23/19 14:53 80 122/81 11/23/19 14:49 98 H 92 11/23/19 14:44 103 H 96 11/23/19 14:39 94 H 95 11/23/19 14:38 37.0 C 109 H 16 116/78 96 11/23/19 14:35 83 94 11/23/19 14:34 104 H 94 11/23/19 14:30 116 H 94 11/23/19 14:29 105 H 95 11/23/19 14:24 112 H 121/81 95 11/23/19 14:23 89 94 11/23/19 14:19 105 H 96 11/23/19 14:14 116 H 95 11/23/19 14:09 92 H 123/76 96 11/23/19 14:04 118 H 96 11/23/19 13:59 133 H 97 11/23/19 13:54 131 H 96 11/23/19 13:53 116 H 108/61 11/23/19 13:49 138 H 97 11/23/19 13:44 112 H 95 11/23/19 13:39 109 H 16 96 11/23/19 13:38 118 H 114/67 11/23/19 13:34 111 H 96 11/23/19 13:29 117 H 95 11/23/19 13:24 129 H 121/69 96 09/20 13:19 128 H 95 11/23/19 13:14 135 H 97 11/23/19 13:10 122 H 111/65 11/23/19 13:09 118 H 96 11/23/19 13:04 133 H 96 11/23/19 13:00 103 H 94 11/23/19 12:59 144 H 96 11/23/19 12:55 111 H 94 11/23/19 12:54 98 H 92 11/23/19 12:53 117 H 106/66 11/23/19 12:50 100 H 94 11/23/19 12:49 105 H 95 11/23/19 12:44 124 H 95 11/23/19 12:39 127 H 18 95 11/23/19 12:38 120 H 108/68 11/23/19 12:34 102 H 94 11/23/19 12:29 106 H 96 11/23/19 12:24 108 H 112/74 97 11/23/19 12:19 115 H 97 11/23/19 12:14 111 H 96 11/23/19 12:10 102 H 121/79 11/23/19 12:09 111 H 96 11/23/19 12:04 96 H 97 11/23/19 11:59 120 H 96 11/23/19 11:55 119 H 91 11/23/19 11:54 123 H 95 11/23/19 11:53 113 H 123/80 11/23/19 11:49 102 H 95 11/23/19 11:45 97 H 93 11/23/19 11:44 95 H 94 11/23/19 11:40 36.9 C 96 H 18 121/78 95 11/23/19 11:39 88 95 11/23/19 11:34 108 H 16 96 11/23/19 11:31 104 H 94 11/23/19 11:29 100 H 96 11/23/19 11:26 113 H 94 11/23/19 11:24 107 H 95 11/23/19 11:23 97 H 124/83 11/23/19 11:19 93 H 18 96 11/23/19 11:14 96 H 95 11/23/19 11:09 91 H 97 11/23/19 11:05 113 H 20 136/91 11/23/19 11:04 105 H 95 11/23/19 10:59 111 H 135/82 97 11/23/19 10:56 110 H 93 11/23/19 10:54 119 H 127/70 96 11/23/19 10:50 102 H 18 94 11/23/19 10:49 117 H 96 11/23/19 10:47 103 H 130/76 11/23/19 10:46 108 H 18 138/85 11/23/19 10:44 121 H 96 11/23/19 10:43 130 H 130/62 11/23/19 10:41 115 H 18 11/23/19 10:39 128 H 115/64 97 11/23/19 10:37 123 H 128/77 11/23/19 10:35 136 H 136/74 11/23/19 10:34 128 H 130/68 96 11/23/19 10:31 126 H 129/76 11/23/19 10:29 137 H 125/80 97 11/23/19 10:27 120 H 139/87 11/23/19 10:25 88 138/92 11/23/19 10:24 116 H 97 11/23/19 10:20 121 H 135/84 11/23/19 10:19 113 H 96 11/23/19 10:14 100 H 132/94 98 11/23/19 10:09 88 96 11/23/19 09:06 36.9 C 103 H 20 151/95 H 11/23/19 08:50 98 H 145/93 H 11/23/19 07:50 116 H 134/91 11/23/19 07:35 100 H 135/87 11/23/19 07:33 93 H 139/90 11/23/19 07:20 109 H 144/94 H 11/23/19 07:03 36.8 C 111 H 18 163/99 H 11/23/19 06:23 78 130/85 11/23/19 05:48 36.6 C 83 18 132/93 11/23/19 05:38 36.6 C 83 18 132/93 Pain Intensity Lower Medial Abdomen: Pain Intensity: 0 Left Chest: Pain Intensity: 6 Transfer of Care Handoff Completed per policy Notes Mental Status: alert / awake / arousable and participated in evaluation Nausea / Vomiting: adequately controlled Pain: adequately controlled Airway Patency, RR, SpO2: stable & adequate BP & HR: stable & adequate Hydration State: stable & adequate Neuraxial Anesthesia: was administered and sensory block is resolving Anesthetic Complications: no major complications apparent and Pt Satisfied with anesthetic care
[2019-11-24] MEDS: HYDROmorphone INJ 0.5 MG/0.5 ML SYR IV PRN ×3 (02:52→15:57)
[2019-11-24] MEDS: LACTATED RINGER'S 1,000 ML IV SCH ×3 (03:18→23:54)
[2019-11-24 06:09] LABS: Basophils # (auto) 0.01 K/uL (0-0.2); Basophils % (auto) 0.1 %; Eosinophils # (auto) 0.01 K/uL (0-0.5); Eosinophils % (auto) 0.1 %; Hematocrit (blood only) 24.9 % (37-47); Hemoglobin 8.2 g/dL (12.0-16.0); Immature Granulocytes # (auto) 0.08 K/uL (0.00-0.02); Immature Granulocytes % (auto) 0.4 %; Lymphocytes # (auto) 0.97 K/uL (1.2-3.4); Lymphocytes % (auto) 5.3 %; Mean Corpuscular Hemoglobin 28.5 pg (25-34); Mean Corpuscular Hgb Conc 32.9 g/dL (32-36); Mean Corpuscular Volume 86.5 fL (80-100); Monocytes # (auto) 0.89 K/uL (0.11-0.59); Monocytes % (auto) 4.9 %; Neutrophils # (auto) 16.22 K/uL (1.4-6.5); Neutrophils % (auto) 89.2 %; Platelet Count 126 K/uL (130-400); RDW Coefficient of Variation 15.4 % (11.5-14.5); RDW Standard Deviation 47.7 fL (36.4-46.3); Red Blood Count 2.88 M/uL (4.2-5.4); White Blood Count 18.18 K/uL (4.8-10.8)
[2019-11-24] MEDS ORDERED: SIMETHICONE 80 MG CHEW PO ONE (06:16)
[2019-11-24] MEDS: SIMETHICONE 80 MG CHEW PO SCH ×3 (06:17→20:23)
[2019-11-24] MEDS: CEFAZOLIN 2000MG 2,000 MG/15 ML SYR IV SCH ×3 (06:17→21:40)
[2019-11-24 06:25] LABS: Fibrinogen 328 mg/dl (184-400); Prothrombin Time 10.9 Seconds (9.0-12.0)
[2019-11-24 06:31] LABS: BUN Creatinine Ratio 10.8 (10-20); Calcium 7.8 mg/dl (8.5-10.1); Creatinine Clr Calc Pharmacy 155.4 ml/min; Est GFR (African American) 139.2; Est GFR (Non-African American) 120.1; Potassium 4.2 mmol/L (3.5-5.1)
[2019-11-24 06:33] LABS: Albumin Globulin Ratio 0.9 (0.9-2); Bilirubin,Total 0.4 mg/dl (0.2-1); Globulin 2.2 gm/dl (2.5-4.0); Total Protein 4.2 gm/dl (6.4-8.2)
--- NOTE | 2019-11-24 06:52 | Ultrasound Report ---
US pelvic limited CLINICAL HISTORY: Check previous c/s incision. COMPARISON STUDY: Ultrasound January 18, 2019. TECHNIQUE: Transabdominal sonography of the pelvis was performed. FINDINGS: Note is made of a complex fluid collection within the lower uterine segment with fluid whic h appears to extend through a defect within the anterior wall of the lower uterine segment suspicious for uterine rupture. A small amount of fluid within the pelvis is noted. As expected, the uterus is enlarged even recent vaginal delivery. The ovaries were not visualized. IMPRESSION: Complex fluid collection within the lower uterine segment with fluid likely extending th rough a defect within the anterior wall of the lower uterine segment. The findings are suspicious for uterine rupture. Small amount of fluid within the pelvis. ACT 112: Negative or not required by law. Electronically signed by: Antione Singh M.D. 11/24/2019 6:51 AM
--- NOTE | 2019-11-24 09:40 | Obstetrical Progress Note ---
Date of Service November 24, 2019 Assessment & Plan (1) Diet controlled gestational diabetes mellitus (GDM), antepartum: 34yo s/p VA- followed by Ex lap and repair of uterine rupture. s/p 2U pRBCs, 1 FFP and albumin. Stable at present. H/H 8.2/24.9 this am. Repeat at 12p today. Discussed delivery and procedure events. Discuss care of perineum and bowel regimen. Will remain on L&D until determined to be persistently stable. (2) Uterine rupture: (3) , delivered, current hospitalization: Subjective Voiding: thomas catheter in place Passing Gas:: No Diet Tolerance:: clear liquids Lochia:: Moderate Reports that she is feeling overall well this am. Reporting feeling bloated and discussed diet recs. Otherwise no concerns this am. We reviewed the course of events occurring with delivery and repair of uterine rupture. Physical Exam Constitutional WD/WN, vitals as above Respiratory normal respiratory effort, lungs clear to auscultation Gastrointestinal (Abdomen) Inspection/Auscultation: abdomen normal to inspection, + abdomen distended (mildly), + abdominal surgical incision (Intact) and + hypoactive bowel sounds Percussion/Palpation: abdomen soft and + tympanic to percussion; abdomen nontender, no guarding and abdomen not rigid Results & Data ([facility]) Vital Signs (Past 12 Hours) Vital Signs Temp Pulse Resp BP Pulse Ox 11/24/19 09:37 108 H 98 11/24/19 09:32 116 H 99 11/24/19 09:31 105 H 116/68 11/24/19 09:27 111 H 99 11/24/19 09:22 119 H 98 11/24/19 09:17 119 H 98 11/24/19 09:12 128 H 98 11/24/19 09:07 121 H 97 11/24/19 09:02 114 H 98 11/24/19 08:57 110 H 98 11/24/19 08:52 111 H 96 11/24/19 08:47 110 H 98 11/24/19 08:42 112 H 98 11/24/19 08:37 120 H 99 11/24/19 08:32 117 H 97 11/24/19 08:31 116 H 115/68 11/24/19 08:27 121 H 95 11/24/19 08:22 113 H 99 11/24/19 08:17 116 H 99 11/24/19 08:12 128 H 97 11/24/19 08:07 121 H 99 11/24/19 08:02 113 H 99 11/24/19 07:57 129 H 97 11/24/19 07:52 127 H 98 11/24/19 07:47 112 H 100 11/24/19 07:42 133 H 98 11/24/19 07:37 123 H 96 11/24/19 07:32 125 H 98 11/24/19 07:31 129 H 115/61 11/24/19 07:30 37.1 C 20 98 11/24/19 07:27 129 H 99 11/24/19 07:24 121 H 113/60 11/24/19 07:22 118 H 96 11/24/19 07:21 118 H 94 11/24/19 07:17 120 H 95 11/24/19 07:15 116 H 93 11/24/19 07:14 120 H 112/63 11/24/19 07:12 121 H 95 11/24/19 07:10 117 H 94 11/24/19 07:07 123 H 93 11/24/19 07:05 123 H 94 11/24/19 07:04 123 H 112/59 L 11/24/19 07:02 119 H 95 11/24/19 06:59 122 H 94 11/24/19 06:57 123 H 94 11/24/19 06:54 130 H 111/73 93 11/24/19 06:52 113 H 94 11/24/19 06:47 128 H 93 11/24/19 06:44 131 H 110/74 11/24/19 06:42 126 H 96 11/24/19 06:37 128 H 97 11/24/19 06:34 134 H 102/63 11/24/19 06:32 126 H 98 11/24/19 06:27 130 H 98 11/24/19 06:24 127 H 108/67 11/24/19 06:22 128 H 96 11/24/19 06:17 128 H 99 11/24/19 06:14 118 H 105/64 11/24/19 06:12 129 H 98 11/24/19 06:07 121 H 99 11/24/19 06:04 115 H 97/67 L 11/24/19 06:02 120 H 99 11/24/19 06:00 20 11/24/19 05:57 121 H 97 11/24/19 05:54 120 H 116/59 L 11/24/19 05:52 115 H 95 11/24/19 05:47 116 H 95 11/24/19 05:44 106 H 122/62 11/24/19 05:42 118 H 95 11/24/19 05:40 125 H 94 11/24/19 05:37 113 H 97 11/24/19 05:35 116 H 93 11/24/19 05:34 113 H 107/58 L 11/24/19 05:32 112 H 95 11/24/19 05:30 109 H 93 11/24/19 05:27 124 H 95 11/24/19 05:24 108 H 112/63 94 11/24/19 05:22 110 H 94 11/24/19 05:17 122 H 97 11/24/19 05:14 121 H 111/64 11/24/19 05:12 126 H 97 11/24/19 05:07 109 H 98 11/24/19 05:04 126 H 109/60 11/24/19 05:02 122 H 93 11/24/19 05:01 120 H 93 11/24/19 04:57 117 H 94 11/24/19 04:55 123 H 92 11/24/19 04:54 114 H 109/57 L 11/24/19 04:52 121 H 91 11/24/19 04:48 124 H 93 11/24/19 04:47 117 H 94 11/24/19 04:44 121 H 115/59 L 11/24/19 04:42 125 H 94 11/24/19 04:37 126 H 93 11/24/19 04:34 116 H 114/56 L 11/24/19 04:32 117 H 94 11/24/19 04:30 37.0 C 11/24/19 04:27 131 H 94 11/24/19 04:26 120 H 93 11/24/19 04:24 126 H 18 121/65 11/24/19 04:22 119 H 92 11/24/19 04:17 115 H 91 11/24/19 04:15 121 H 93 11/24/19 04:14 121 H 118/65 09/24/20 04:12 118 H 94 11/24/19 04:09 125 H 94 11/24/19 04:07 119 H 92 11/24/19 04:04 131 H 113/64 11/24/19 04:02 119 H 92 11/24/19 03:57 115 H 94 11/24/19 03:54 122 H 122/68 11/24/19 03:52 110 H 95 11/24/19 03:51 128 H 92 11/24/19 03:46 130 H 91 11/24/19 03:45 113 H 93 11/24/19 03:44 130 H 114/70 11/24/19 03:41 131 H 95 11/24/19 03:39 129 H 93 11/24/19 03:36 134 H 97 11/24/19 03:35 129 H 113/59 L 11/24/19 03:34 125 H 94 11/24/19 03:31 124 H 95 11/24/19 03:26 123 H 96 11/24/19 03:24 18 11/24/19 03:23 113 H 93 11/24/19 03:21 123 H 97 11/24/19 03:16 127 H 94 11/24/19 03:14 16 123/76 11/24/19 03:12 120 H 94 11/24/19 03:11 114 H 95 11/24/19 03:07 121 H 94 11/24/19 03:06 119 H 94 11/24/19 03:04 113 H 18 130/78 11/24/19 03:01 119 H 97 11/24/19 02:56 118 H 95 11/24/19 02:55 112 H 94 11/24/19 02:54 126 H 18 122/82 11/24/19 02:51 123 H 97 11/24/19 02:46 119 H 95 11/24/19 02:44 117 H 16 141/84 H 11/24/19 02:41 120 H 96 11/24/19 02:36 136 H 96 11/24/19 02:34 125 H 18 143/82 H 11/24/19 02:32 106 H 92 11/24/19 02:31 121 H 98 11/24/19 02:26 109 H 95 11/24/19 02:24 37.3 C 116 H 18 129/82 11/23/19 23:52 123 H 109/71 11/23/19 23:49 128 H 98 11/23/19 23:48 136 H 120/68 11/23/19 23:44 128 H 114/67 97 11/23/19 23:39 123 H 99 11/23/19 23:38 130 H 118/67 11/23/19 23:34 126 H 115/66 98 11/23/19 23:29 134 H 97 11/23/19 23:24 130 H 120/76 98 11/23/19 23:19 140 H 96 11/23/19 23:14 120 H 98 11/23/19 23:09 122 H 97 11/23/19 23:08 129 H 80/49 L 11/23/19 23:07 118 H 81/46 L 11/23/19 23:04 119 H 96 11/23/19 23:03 127 H 79/44 L 11/23/19 23:00 114 H 79/40 L 11/23/19 22:59 117 H 95 11/23/19 22:54 135 H 87/52 L 96 11/23/19 22:53 129 H 83/47 L 11/23/19 22:49 124 H 96 11/23/19 22:44 110 H 96 11/23/19 22:39 128 H 97 11/23/19 22:38 126 H 88/54 L 11/23/19 22:34 129 H 96 11/23/19 22:29 137 H 94 11/23/19 22:24 153 H 94/56 L 97 11/23/19 22:19 167 H 96 11/23/19 22:14 144 H 86 L 11/23/19 22:09 167 H 99 11/23/19 22:04 179 H 99 11/23/19 21:59 133 H 100 11/23/19 21:55 136 H 123/83 11/23/19 21:54 117 H 97 11/23/19 21:49 149 H 97 11/23/19 21:44 112 H 96
[2019-11-24] MEDS: DOCUSATE SODIUM 100 MG CAP PO SCH ×2 (10:08→20:24)
[2019-11-24] MEDS: FERROUS SULFATE 325 MG TAB PO SCH (10:08)
[2019-11-24] MEDS: PRENATAL VITAMIN 1 TAB PO SCH (10:09)
--- NOTE | 2019-11-24 10:23 | Operative Report (OR) ---
DATE OF OPERATION: 11/23/2019 PROCEDURE: Vacuum-assisted vaginal after section. SURGEON: Hema Mancia MD. PREOPERATIVE DIAGNOSES: 1. Single intrauterine at 40 weeks plus gestational age. 2. Spontaneous premature rupture of membranes. 3. Acute onset category 2 tracing with bradycardia. 4. Advanced maternal age. 5. Hypothyroidism. 6. History of preeclampsia. 7. Diet-controlled gestational diabetes. 8. tricuspid valve insufficiency, abnormal ductal arch. POSTOPERATIVE DIAGNOSES: 1. Single intrauterine at 40 weeks plus gestational age. 2. Spontaneous premature rupture of membranes. 3. Acute onset category 2 tracing with bradycardia. 4. Advanced maternal age. 5. Hypothyroidism. 6. History of preeclampsia. 7. Diet-controlled gestational diabetes. 8. tricuspid valve insufficiency, abnormal ductal arch. 9. Suspected uterine rupture following the diagnosis after delivery. 10. Shoulder dystocia. ESTIMATED BLOOD LOSS: During delivery and after suspected rupture of approximately 800 mL. DRAINS: Gottlieb catheter placed. URINE OUTPUT: Per Gottlieb catheter. COMPLICATIONS: 1. Uterine rupture diagnosed after delivery 2. Shoulder dystocia. INDICATIONS: The patient is a 34-year-old G3, P0-1-1-1 admitted at 40 weeks 2 days gestational age with premature rupture of membranes. After the consents were reviewed and signed, the patient was started on oxytocin to help initiate contractions. She received an epidural for anesthesia and continued to progress in labor well. The patient achieved complete cervical dilation at +1 station and felt a strong urge to push. The patient initiated pushing process and did push the baby down to +2 station. The patient pushed for approximately 20-30 minutes, at which time a heart rate baseline declined to the upper 80s and low 90s. Evaluation was performed and the was noted to still be at +2 station and after a persistent bradycardia episode for approximately 3-4 minutes, the patient was verbally consented for a vacuum-assisted delivery to expedite delivery due to the persistent bradycardia. There was initial concern for uterine rupture, although after evaluation there was no significant abdominal pain, vaginal bleeding or change in station, an attempted vacuum delivery to expedite delivery was felt to be warranted. DESCRIPTION OF PROCEDURE: The patient progressed to 10 cm dilated, 100% effaced, +2 station, during pushing a bradycardic episode occurred and after the heart rate was noted to be persistently in the upper 80s and low 90s for approximately 3-4 minutes. Decision was made to proceed with a vacuum delivery; the room was prepped for vacuum delivery for indications as noted above. The vacuum was placed 2 cm above the posterior fontanelle and insufflated within the green zone. The patient pushed over 3 contractions to achieve delivery of the head. The care was taken to apply tension below recommended tension by closely monitoring the tension gauge during pulls. After the head delivered, attempt at deliver of the anterior shoulder was initiated. The shoulder did not deliver with gentle traction and a sweep of the anterior shoulder was initiated. The anterior shoulder was not able to be palpated. The head of the bed was lowered. The patient was placed in Johanne position and returned to delivery, the anterior shoulder was initiated with no success. The attempt at the posterior arm was initiated, which was also not able to be palpated; suprapubic pressure was then applied, which help deliver the anterior shoulder to a position that could be delivered. The anterior shoulder was then delivered followed quickly by the posterior shoulder and body quickly followed. was noted to be non vigorous upon delivery and the cord was quickly double clamped and cut. The taken to the waiting nursery staff for resuscitation. Cord segment and cord blood was then obtained. Attention was paid to deliver the placenta with gentle cord traction. There was noted to be intact 3-vessel cord. The patient was noted to have minimal bleeding following delivery of the placenta with a firm fundus was noted. On inspection of the perineum, vagina, and cervix, was notable for fourth degree perineal laceration. The laceration was initially started in the delivery room, although the patient was noted to develop tachycardia and hypertension with blood pressures in the 80s and 90s over 50s due to the acute change in vital signs without significant bleeding noted vaginally caused suspicion for uterine rupture. An attempt to diagnosis uterine rupture was initiated and a possible uterine defect was noted. The patient was started on an IV bolus. A second IV site was then initiated. We ordered a stat blood counts and coags, fibrinogen, also asked blood type to type and cross for 2 units stat. A stat ultrasound was also performed, which was highly suspicious for uterine rupture. Dr. Almonte was contacted to come in to help assist. The patient was then verbally consented, due to the acute nature, for an exploratory laparotomy with repair of uterine incision and possible hysterectomy if indicated. Risks of the procedure were reviewed with the patient verbally consented to the procedure. Please refer to op note for OR procedure for further details on exploratory laparotomy, I attest to the content of the Intraoperative Record and any orders documented therein. Any exceptions are noted below. CHLOE
--- NOTE | 2019-11-24 11:08 | Operative Report (OR) ---
DATE OF OPERATION: 11/23/2019 PROCEDURES: 1. Exploratory laparotomy with repair of uterine rupture. 2. Evacuation of hemoperitoneum. SURGEON: Hema Mancia MD. COMPLETION ENGINEER: Shantal Almonte DO. ESTIMATED BLOOD LOSS: Including hemoperitoneum approximately 1000 mL. URINE OUTPUT: Gottlieb catheter. COMPLICATIONS In OR none. INDICATIONS: The patient is a 34-year-old G3, P0-1-1-1 admitted at 40 weeks 2 days gestational age for trial of labor after section. The patient was consented for the , please see delivery operative report for further details. After a vacuum-assisted vaginal delivery was performed, the patient was noted to have tachycardia with hypotension. A uterine rupture was suspected due to minimal vaginal bleeding with new onset hypotension and tachycardia. A resuscitation efforts were initiated, please see delivery summary report for additional details. A uterine dehiscence was highly suspicious based on physical exam notable and stat ultrasound showing likely uterine defect. The patient was verbally consented for an exploratory laparotomy with repair of uterine rupture and possible hysterectomy. Dr Almonte was contacted to assist with procedures. The patient was quickly taken to the OR for the procedure. The patient was given IV fluid boluses and blood products were started soon after presenting to the OR, procedure was able to be performed following bolus with the patient's epidural. After noting the uterine dehiscence was present in the OR, it was deduced that the was that the shoulder dystocia was likely caused from the shoulder engaging with the uterine dehiscence. DESCRIPTION OF PROCEDURE: The patient was taken to the operating room after verbal consents were obtained, the patient's epidural was bolused to achieve adequate surgical levels. The patient was prepped and draped in the normal sterile fashion. Preprocedural timeout was then performed. A Pfannenstiel skin incision was then made with a knife at the patient's prior skin incision. This was carried down to underlying fascia with the Bovie. The fascia was nicked at the midline with a knife and extended laterally with glenna and Andujar scissors. The midline of the abdomen was then entered bluntly and there was noted to be significant hemoperitoneum present upon delivery. This was also mixed with an amniotic fluid. Total blood loss from the hemoperitoneum and the procedure was approximately 1000 mL. The hemoperitoneum was evacuated to be able to see the uterus. The uterus was then exteriorized and a full uterine rupture was noted. The left broad ligament extending to the right with a deep left lower uterine segment extension down to approximately the level of the cervix. The ring forceps were placed to demarcate the edges of the dehiscence and help demarcate its orientation to the bladder. The uterus rupture was then repaired with 0 Vicryl with continuous running locked stitch. A second stitch was initiated from the right lower uterine segment and cervical extension. After initial closure, the bleeding was noted to be minimal. A second imbricating layer was then performed and several [id number] reinforcing sutures of the lower uterine segment were required to help achieve hemostasis as well as fix small lower uterine segment defects. After the full defect was noted to be repaired, inspection for several minutes before uterus was returned to the abdomen was notable for hemostasis. The posterior cul-de-sac was then cleaned of blood clots and debris. It was gently suctioned. The uterus was then returned to abdomen and right and left pericolic gutters were cleaned of clots and debris. Inspection of the uterine rupture and repair were then initiated and there was noted to be good hemostasis. We continued to watch the incision for several minutes, no bleeding appreciated. The decision was made to end the case at that time. The subcutaneous layers were inspected and noted to be hemostatic. The fascia was then closed with 0 Vicryl in continuous running stitch starting at both apices and continuing medially. The subcutaneous layers were reapproximated with 2-0 plain in 2 layers. Skin was reapproximated with 3-0 Vicryl in subcuticular stitch. Dermabond was placed on top. The patient in total received 2 units of packed red blood cells, 1 unit of FFP and 2 bottles of albumin as well as several liters of lactated Ringer. The patient was noted to be in stable condition at that time and was taken to labor room for continued evaluation. I attest to the content of the Intraoperative Record and any orders documented therein. Any exceptions are noted below. SHREED
[2019-11-24 12:21] LABS: Hematocrit (blood only) 23.1 % (37-47); Hemoglobin 7.7 g/dL (12.0-16.0); Mean Corpuscular Hemoglobin 28.5 pg (25-34); Mean Corpuscular Hgb Conc 33.3 g/dL (32-36); Mean Corpuscular Volume 85.6 fL (80-100); Mean Platelet Volume 10.9 fL (7.4-10.4); Platelet Count 112 K/uL (130-400); RDW Coefficient of Variation 15.7 % (11.5-14.5); RDW Standard Deviation 48.1 fL (36.4-46.3); White Blood Count 14.68 K/uL (4.8-10.8)
--- NOTE | 2019-11-24 13:54 | Obstetrical Progress Note ---
Date of Service November 24, 2019 Assessment & Plan Admission and Anticipated Discharge Date Admission Date: November 23, 2019 Subjective S: Patient is awake in room, states she is feeling "pretty good." Has not been out of bed yet; bed rest until duramorph is over at 7pm. Has not yet really advanced diet. No symptoms of weakness/dizziness. O: vitals stable, BP wnl and pulse improving. Good urine output. No vaginal or incisional bleeding. Abdomen soft, diffusely mildly tender. Nondistended. hypoactive bowel sounds in all 4 quadrants. Labs slightly lower, but relatively stable from this morning. A: improving - looks stable clinically, and labs are relatively stable P: Repeat labs at 6pm, advance diet to clear liquids. Discussed with patient, she is agreeable. Results & Data ([facility]) Vital Signs (Past 12 Hours) Vital Signs Temp Pulse Resp BP Pulse Ox 11/24/19 13:47 111 H 100 11/24/19 13:42 107 H 100 11/24/19 13:37 103 H 100 11/24/19 13:35 116 H 94 11/24/19 13:32 103 H 95 11/24/19 13:31 93 H 115/66 11/24/19 13:30 20 97 11/24/19 13:27 99 H 96 11/24/19 13:25 106 H 94 11/24/19 13:22 100 H 95 11/24/19 13:19 108 H 93 11/24/19 13:17 109 H 95 11/24/19 13:13 105 H 94 11/24/19 13:12 108 H 95 11/24/19 13:07 107 H 95 11/24/19 13:02 106 H 94 11/24/19 13:00 106 H 94 11/24/19 12:57 101 H 94 11/24/19 12:55 109 H 94 11/24/19 12:52 112 H 95 11/24/19 12:48 112 H 93 11/24/19 12:47 107 H 96 11/24/19 12:42 99 H 93 11/24/19 12:37 103 H 98 11/24/19 12:32 106 H 97 11/24/19 12:31 110 H 121/65 11/24/19 12:30 20 98 11/24/19 12:27 109 H 98 11/24/19 12:22 109 H 97 11/24/19 12:17 108 H 97 11/24/19 12:12 111 H 98 11/24/19 12:07 105 H 100 11/24/19 12:02 107 H 97 11/24/19 11:57 105 H 98 11/24/19 11:52 119 H 99 11/24/19 11:47 120 H 100 11/24/19 11:42 107 H 99 11/24/19 11:37 119 H 99 11/24/19 11:32 114 H 98 11/24/19 11:31 111 H 127/82 11/24/19 11:30 36.9 C 20 97 11/24/19 11:27 110 H 100 11/24/19 11:22 117 H 97 11/24/19 11:17 124 H 97 11/24/19 11:12 124 H 97 11/24/19 11:07 105 H 97 11/24/19 11:02 113 H 98 11/24/19 10:57 120 H 98 11/24/19 10:52 115 H 99 11/24/19 10:47 116 H 97 11/24/19 10:42 111 H 98 11/24/19 10:37 102 H 98 11/24/19 10:32 118 H 95 11/24/19 10:31 115 H 97/54 L 11/24/19 10:30 20 97 11/24/19 10:27 115 H 97 11/24/19 10:22 116 H 97 11/24/19 10:17 118 H 98 11/24/19 10:12 118 H 97 11/24/19 10:10 108 H 93 11/24/19 10:07 118 H 97 11/24/19 10:02 117 H 95 11/24/19 09:57 115 H 97 11/24/19 09:52 109 H 98 11/24/19 09:47 118 H 96 11/24/19 09:42 112 H 99 11/24/19 09:37 108 H 98 11/24/19 09:32 116 H 99 11/24/19 09:31 105 H 116/68 11/24/19 09:30 20 98 11/24/19 09:27 111 H 99 11/24/19 09:22 119 H 98 11/24/19 09:17 119 H 98 11/24/19 09:12 128 H 98 11/24/19 09:07 121 H 97 11/24/19 09:02 114 H 98 11/24/19 08:57 110 H 98 11/24/19 08:52 111 H 96 11/24/19 08:47 110 H 98 11/24/19 08:42 112 H 98 11/24/19 08:37 120 H 99 11/24/19 08:32 117 H 97 11/24/19 08:31 116 H 115/68 11/24/19 08:30 20 98 11/24/19 08:27 121 H 95 11/24/19 08:22 113 H 99 11/24/19 08:17 116 H 99 11/24/19 08:12 128 H 97 11/24/19 08:07 121 H 99 11/24/19 08:02 113 H 99 11/24/19 07:57 129 H 97 11/24/19 07:52 127 H 98 11/24/19 07:47 112 H 100 11/24/19 07:42 133 H 98 11/24/19 07:37 123 H 96 11/24/19 07:32 125 H 98 11/24/19 07:31 129 H 115/61 11/24/19 07:30 37.1 C 20 98 11/24/19 07:27 129 H 99 11/24/19 07:24 121 H 113/60 11/24/19 07:22 118 H 96 11/24/19 07:21 118 H 94 11/24/19 07:17 120 H 95 11/24/19 07:15 116 H 93 11/24/19 07:14 120 H 112/63 11/24/19 07:12 121 H 95 11/24/19 07:10 117 H 94 11/24/19 07:07 123 H 93 11/24/19 07:05 123 H 94 11/24/19 07:04 123 H 112/59 L 11/24/19 07:02 119 H 95 11/24/19 06:59 122 H 94 11/24/19 06:57 123 H 94 11/24/19 06:54 130 H 111/73 93 11/24/19 06:52 113 H 94 11/24/19 06:47 128 H 93 11/24/19 06:44 131 H 110/74 09/20 06:42 126 H 96 11/24/19 06:37 128 H 97 11/24/19 06:34 134 H 102/63 11/24/19 06:32 126 H 98 11/24/19 06:27 130 H 98 11/24/19 06:24 127 H 108/67 11/24/19 06:22 128 H 96 11/24/19 06:17 128 H 99 11/24/19 06:14 118 H 105/64 11/24/19 06:12 129 H 98 11/24/19 06:07 121 H 99 11/24/19 06:04 115 H 97/67 L 11/24/19 06:02 120 H 99 11/24/19 06:00 20 11/24/19 05:57 121 H 97 11/24/19 05:54 120 H 116/59 L 11/24/19 05:52 115 H 95 11/24/19 05:47 116 H 95 11/24/19 05:44 106 H 122/62 11/24/19 05:42 118 H 95 11/24/19 05:40 125 H 94 11/24/19 05:37 113 H 97 11/24/19 05:35 116 H 93 11/24/19 05:34 113 H 107/58 L 11/24/19 05:32 112 H 95 11/24/19 05:30 109 H 93 11/24/19 05:27 124 H 95 11/24/19 05:24 108 H 112/63 94 11/24/19 05:22 110 H 94 11/24/19 05:17 122 H 97 11/24/19 05:14 121 H 111/64 11/24/19 05:12 126 H 97 11/24/19 05:07 109 H 98 11/24/19 05:04 126 H 109/60 11/24/19 05:02 122 H 93 11/24/19 05:01 120 H 93 11/24/19 04:57 117 H 94 11/24/19 04:55 123 H 92 11/24/19 04:54 114 H 109/57 L 11/24/19 04:52 121 H 91 11/24/19 04:48 124 H 93 11/24/19 04:47 117 H 94 11/24/19 04:44 121 H 115/59 L 11/24/19 04:42 125 H 94 11/24/19 04:37 126 H 93 11/24/19 04:34 116 H 114/56 L 11/24/19 04:32 117 H 94 11/24/19 04:30 37.0 C 11/24/19 04:27 131 H 94 11/24/19 04:26 120 H 93 11/24/19 04:24 126 H 18 121/65 11/24/19 04:22 119 H 92 11/24/19 04:17 115 H 91 11/24/19 04:15 121 H 93 11/24/19 04:14 121 H 118/65 11/24/19 04:12 118 H 94 11/24/19 04:09 125 H 94 11/24/19 04:07 119 H 92 11/24/19 04:04 131 H 113/64 11/24/19 04:02 119 H 92 11/24/19 03:57 115 H 94 11/24/19 03:54 122 H 122/68 11/24/19 03:52 110 H 95 11/24/19 03:51 128 H 92 11/24/19 03:46 130 H 91 11/24/19 03:45 113 H 93 11/24/19 03:44 130 H 114/70 11/24/19 03:41 131 H 95 11/24/19 03:39 129 H 93 11/24/19 03:36 134 H 97 11/24/19 03:35 129 H 113/59 L 11/24/19 03:34 125 H 94 11/24/19 03:31 124 H 95 11/24/19 03:26 123 H 96 11/24/19 03:24 18 11/24/19 03:23 113 H 93 11/24/19 03:21 123 H 97 11/24/19 03:16 127 H 94 11/24/19 03:14 16 123/76 11/24/19 03:12 120 H 94 11/24/19 03:11 114 H 95 11/24/19 03:07 121 H 94 11/24/19 03:06 119 H 94 11/24/19 03:04 113 H 18 130/78 11/24/19 03:01 119 H 97 11/24/19 02:56 118 H 95 11/24/19 02:55 112 H 94 11/24/19 02:54 126 H 18 122/82 11/24/19 02:51 123 H 97 11/24/19 02:46 119 H 95 11/24/19 02:44 117 H 16 141/84 H 11/24/19 02:41 120 H 96 11/24/19 02:36 136 H 96 11/24/19 02:34 125 H 18 143/82 H 11/24/19 02:32 106 H 92 11/24/19 02:31 121 H 98 11/24/19 02:26 109 H 95 11/24/19 02:24 37.3 C 116 H 18 129/82 PG Care Time/CCT Total # of Minutes Spent Total Time Spent with Patient: Total time spent is greater than 50% in coordination of care (as documented) at patient's floor/unit and/or counseling patient: Coding Level of Care Code None
[2019-11-24 14:28] LABS: Hematocrit (blood only) 23.3 % (37-47); Hemoglobin 7.8 g/dL (12.0-16.0); Mean Corpuscular Hemoglobin 28.7 pg (25-34); Mean Corpuscular Hgb Conc 33.5 g/dL (32-36); Mean Corpuscular Volume 85.7 fL (80-100); Mean Platelet Volume 11.6 fL (7.4-10.4); Platelet Count 120 K/uL (130-400); RDW Coefficient of Variation 15.9 % (11.5-14.5); RDW Standard Deviation 48.5 fL (36.4-46.3); Red Blood Count 2.72 M/uL (4.2-5.4)
[2019-11-24 14:47] LABS: BUN Creatinine Ratio 7.3 (10-20); Calcium 8.3 mg/dl (8.5-10.1); Creatinine Clr Calc Pharmacy 121.4 ml/min; Est GFR (African American) 123.7; Est GFR (Non-African American) 106.7; Potassium 3.9 mmol/L (3.5-5.1)
[2019-11-24 14:50] LABS: Albumin Globulin Ratio 0.8 (0.9-2); Bilirubin,Total 0.2 mg/dl (0.2-1); Globulin 2.6 gm/dl (2.5-4.0); Total Protein 4.6 gm/dl (6.4-8.2)
[2019-11-24 15:35] LABS: Partial Thromboplastin Ratio 1.1; Partial Thromboplastin Time 31.3 Seconds (21.0-31.0)
[2019-11-24 15:36] LABS: Fibrinogen 434 mg/dl (184-400)
[2019-11-24] MEDS ORDERED: PROMETHAZINE HCL 25 MG in SODIUM CHLORIDE 0.9% 50 ML IV PRN (19:37)
[2019-11-24] MEDS: OXYCODONE/ACETAMINOPHEN 5mg/325mg TAB PO PRN ×2 (20:24→23:54)
[2019-11-24] MEDS: SENNA 8.6 MG TAB PO SCH (20:24)
--- NOTE | 2019-11-25 05:03 | Obstetrical Progress Note ---
Date of Service November 25, 2019 Assessment & Plan (1) : S/p VA- at 40 2/7 weeks followed by Ex lap and repair of uterine rupture, POD 2 - Feels improved today. Stable. Starting to eat, voiding well, sitting up in bed without issues. - Pain well-controlled with Percocet PRN. - Vital signs reviewed and mildly tachycardic 110s and mildly low O2 sats low 90s - ordered CTA-Chest w/ contrast to r/o PE - Hemoglobin reviewed. 10 --> 8.2 --> 7.7 --> 7.8 --> 7.6 (today). - WBC relatively stable (13-15 over last 24 hours) - Plts 120 --> 140 - Blood Type: B+, GBS negative, Rubella Immune, COVID-19 negative - Continue routine post-operative care: encourage ambulation as tolerated, monitor and control pain with Percocet PRN, advance clear liquid diet today as tolerated, monitor lochia - After discharge, will have 6-wk follow-up with [facility] Admission and Anticipated Discharge Date Admission Date: November 23, 2019 Supervising Physician Co-Signing Physician Notes Resident Physician Supervision Note: I was present with Dr. Michael during the history and exam. I discussed the case with the resident and agree with the findings and plan as documented in the note. Any exceptions or clarifications are listed here: Doing much better. Vitals stable, but tachy. Will obtain CT to r/o PE for tachycardia. Pt agreeable. OK to remove thomas, advance diet. Ambulate with assist. Documented By: Shantal Almonte, DO Subjective HPI Corrie Mon is a 34yo s/p VA- at 40 2/7 weeks followed by Ex lap and repair of uterine rupture, POD 2. s/p 2U pRBCs, 1 FFP and albumin after delivery. She reports feeling improved overall this morning without dizziness, syncope or near-syncope. no abdominal cramping and moderate, improved pain well managed on analgesics (Percocet). Thomas in place and adequate UOP. Tolerating liquid diet overnight without difficulty. Patient has been able to sit up in bed. passing gas and no bowel movement. Has persistent lochia with some improvement this morning. Patient's is at [facility] on cooling protocol. Review of Systems Review of Systems: ROS Denies fever or chills. Denies shortness of breath or cough. Denies chest pain. Denies breast pain. Denies dysuria. Denies leg pain or leg swelling. Denies headache or changes in vision. Physical Exam Physical Exam: General: Alert, oriented. No acute distress. Cardiac: Regular rate and rhythm. No murmurs. Respiratory: Clear to auscultation bilaterally a/p, no wheezes/rales/rhonchi. No increased work of breathing. Symmetrical chest rise. No respiratory distress. Abdomen: Soft, moderately tender to mild palpation, nondistended. Bowel sounds present. Uterus: Fundal exam limited by abdominal pain Lower Extremities: No lower extremity edema or swelling. No deep calf pain. Jerilyn's negative bilaterally. Results & Data ([facility]) Vital Signs (Past 12 Hours) Vital Signs Temp Pulse Pulse Resp BP BP Pulse Ox 11/25/19 04:19 36.9 C 114 H 16 133/88 92 11/25/19 03:23 36.6 C 108 H 16 128/84 94 11/25/19 02:04 36.5 C 108 H 14 123/80 94 11/25/19 00:57 37 C 107 H 16 122/81 91 11/24/19 23:55 36.6 C 116 H 18 122/71 94 11/24/19 23:00 37 C 125 H 18 121/81 96 11/24/19 22:39 37.0 C 112 H 18 124/83 97 11/24/19 21:30 37.3 C 120 H 16 123/82 95 11/24/19 20:30 36.9 C 124 H 18 133/85 95 11/24/19 19:30 36.7 C 117 H 20 134/79 98 11/24/19 18:30 120 H 18 119/77 97 11/24/19 17:30 116 H 18 117/77 99 Resident Activity Tracking Resident Involvement: Resident Care Provided Care Provided: OB Delivery
[2019-11-25] MEDS: OXYCODONE/ACETAMINOPHEN 5mg/325mg TAB PO PRN ×5 (05:37→21:44)
[2019-11-25 05:46] LABS: Hematocrit (blood only) 23.6 % (37-47); Hemoglobin 7.6 g/dL (12.0-16.0); Mean Corpuscular Hgb Conc 32.2 g/dL (32-36); Mean Corpuscular Volume 87.1 fL (80-100); Mean Platelet Volume 10.8 fL (7.4-10.4); Platelet Count 140 K/uL (130-400); RDW Coefficient of Variation 16.1 % (11.5-14.5); RDW Standard Deviation 50.1 fL (36.4-46.3); Red Blood Count 2.71 M/uL (4.2-5.4); White Blood Count 15.41 K/uL (4.8-10.8)
[2019-11-25] MEDS: LACTATED RINGER'S 1,000 ML IV SCH (07:48)
[2019-11-25] MEDS ORDERED: OPTIRAY 320 125ml IV ONE (08:12)
--- NOTE | 2019-11-25 08:23 | CT Scan Report ---
CT ANGIOGRAM OF THE CHEST CLINICAL HISTORY: Hypoxia, tachycardia. Possible acute pulmonary embolism. COMPARISON STUDY: Chest x-ray dated 02/19/2019 TECHNIQUE: Following the IV administration of 120 mL of Optiray-320, CT angiogram of the thorax was p erformed from the thoracic inlet to the lung bases utilizing the pulmonary embolus protocol. Images a re reviewed in the axial, sagittal, and coronal planes. IV contrast was administered without complica tion. MIP imaging was performed. A dose lowering technique was utilized adhering to the principles o f ALARA. CT DOSE: 717.71 mGy.cm FINDINGS: There is a 4 mm right lobe thyroid nodule. No further workup is indicated given the small size of thi s nodule. No pathologically enlarged axillary mediastinal or hilar lymph nodes were visualized. There was no evidence of thoracic aortic dilatation. There were no pulmonary artery filling defects to indicate acute pulmonary embolism. There are small bilateral pleural effusions. There are dependent airspace opacities, likely atelectat ic. There is mild interlobular septal edema. IMPRESSION: 1. No evidence of acute pulmonary embolism 2. Small bilateral pleural effusions 3. Dependent airspace opacities statistically atelectatic 4. Mild interlobular septal edema. ACT 112: Negative or not required by law. Electronically signed by: Marlon Sutton M.D. 11/25/2019 8:21 AM
[2019-11-25] MEDS: DOCUSATE SODIUM 100 MG CAP PO SCH ×2 (09:07→20:03)
[2019-11-25] MEDS: FERROUS SULFATE 325 MG TAB PO SCH (09:07)
[2019-11-25] MEDS: SIMETHICONE 80 MG CHEW PO SCH ×4 (09:07→20:04)
[2019-11-25] MEDS: PRENATAL VITAMIN 1 TAB PO SCH (09:08)
--- NOTE | 2019-11-25 12:24 | Electrocardiogram Report ---
Test Reason : Blood Pressure : / mmHG Vent. Rate : 099 BPM Atrial Rate : 099 BPM P-R Int : 122 ms QRS Dur : 080 ms QT Int : 304 ms P-R-T Axes : 059 062 019 degrees QTc Int : 390 ms Sinus rhythm with marked sinus arrhythmia Possible Left atrial enlargement Borderline ECG When compared with ECG of 19-FEB-2019 12:16, No significant change was found Confirmed by Jose Thakur ([id number]) on 11/25/2019 12:23:56 PM Referred By: Rita Andrade Confirmed By:Jose Thakur
[2019-11-25] MEDS ORDERED: bisacodyL 5 MG TABEC PO SCH (20:00)
[2019-11-25] MEDS: SENNA 8.6 MG TAB PO SCH (20:03)
[2019-11-26] MEDS ORDERED: bisacodyL 10 MG SUPP PR PRN (02:44)
[2019-11-26] MEDS: OXYCODONE/ACETAMINOPHEN 5mg/325mg TAB PO PRN (05:56)
[2019-11-26] MEDS: FERROUS SULFATE 325 MG TAB PO SCH (07:43)
[2019-11-26] MEDS: DOCUSATE SODIUM 100 MG CAP PO SCH (07:43)
[2019-11-26] MEDS: PRENATAL VITAMIN 1 TAB PO SCH (07:43)
[2019-11-26] MEDS: SIMETHICONE 80 MG CHEW PO SCH (07:44)
--- NOTE | 2019-11-26 08:11 | Obstetrical Progress Note ---
Date of Service November 26, 2019 Assessment & Plan (1) , delivered, current hospitalization: patient wishes to be discharged now doing well script for percocet sent to pharmacy follow up visit already scheduled in our office Subjective Ambulation: ambulating normally Voiding: no voiding problems Passing Gas:: Yes Diet Tolerance:: regular diet Feeding Type:: breast feeding (pumping) no lightheadedness or dizziness . baby still at [facility] - had seizure yesterday. She is anxious to see her and would like to be discharged. Review of Systems All systems reviewed & are unremarkable except as noted in HPI & below Physical Exam Constitutional WD/WN, vitals as above Gastrointestinal (Abdomen) normal bowel sounds, soft, nontender, no hepatosplenomegaly Inspection/Auscultation: + abdominal surgical incision (dry & intact- no cellulitis) Psychiatric A+Ox3, euthymic affect Results & Data ([place]) Vital Signs (Past 12 Hours) Vital Signs Temp Pulse Resp BP Pulse Ox 11/26/19 00:00 98.2 F 121 H 16 127/80 96
== END 2019-11-26 09:45 | disposition home or self-care (01) | DRG 768 ==
LOC: OPB 05:29 → 4S1 05:35 → 4S2 11-24 15:00
PROC: M.EUALD (2019-11-24 00:10)
DX: Z37.0 Single live birth; O24.420 Gestational diabetes mellitus in childbirth, diet controlled; O99.284 Endocrine, nutritional and metabolic diseases complicating childbirth; E03.9 Hypothyroidism, unspecified; O71.1 Rupture of uterus during labor; Z3A.40 40 weeks gestation of pregnancy; O09.523 Supervision of elderly multigravida, third trimester